=== PATIENT | female | born 1960 | race Caucasian/White ===

== ENCOUNTER 2018-08-03 13:57 | Emergency (ER) | payer BC ==
[~2018-08-03] VITALS: Ht 154.9 cm; Wt 89.8 kg
[2018-08-03] MEDS ORDERED: IV NORMAL SALINE 500 ML BAG IV ONE (14:15)
[2018-08-03 14:32] LABS: BASOPHILS # (AUTO) 0.1 K/uL (0.0-8.0); BASOPHILS % (AUTO) 1.2 % (0.0-2.0); EOSINOPHILS # (AUTO) 0.1 K/uL (0.0-0.7); EOSINOPHILS % (AUTO) 1.9 % (0.0-7.0); HEMATOCRIT 43.8 % (31.2-41.9); HEMOGLOBIN 14.4 g/dL (10.9-14.3); LYMPHOCYTES % (AUTO) 27.5 % (20.5-51.5); MEAN CORPUSCULAR HEMOGLOBIN 27.7 uug (24.7-32.8); MEAN CORPUSCULAR HGB CONC 33 g/dL (32.3-35.6); MEAN CORPUSCULAR VOLUME 84.2 fL (75.5-95.3); MONOCYTES # (AUTO) 0.5 K/uL (2.0-10.0); MONOCYTES % (AUTO) 6.6 % (0.0-11.0); NEUTROPHILS # (AUTO) 4.6 K/uL (1.8-8.9); NEUTROPHILS % (AUTO) 62.8 % (38.5-71.5); PLATELET COUNT (AUTO) 355 K/uL (179-408); WHITE BLOOD COUNT (AUTO) 7.3 K/uL (3.8-11.8)
--- NOTE | 2018-08-03 14:41 | NUR ---
pt back from ct scan, no change in pt condition. pt placed on monitor.
[2018-08-03 14:42] LABS: CREATININE 0.7 mg/dL (0.6-1.3)
--- NOTE | 2018-08-03 14:45 | NUR ---
handss off report given to valery resendezn
[2018-08-03 14:48] LABS: BILIRUBIN,DIRECT 0.1 mg/dL (0.0-0.2); BILIRUBIN,TOTAL 0.5 mg/dL (0.2-1.0)
[2018-08-03 14:49] LABS: TOTAL PROTEIN, SERUM 7.6 g/dL (6.4-8.2)
[2018-08-03] MEDS ORDERED: ASPIRIN 325 MG TABLET PO ONE (15:00)
--- NOTE | 2018-08-03 15:00 | NUR ---
DR YADAV MADE PATIENT AWARE OF TEST RESULTS
[2018-08-03] MEDS ORDERED: ASPIRIN 325 MG TABLET ONE (15:01)
--- NOTE | 2018-08-03 15:07 | NUR ---
Patient discharged to home in stable conditon. Written and verbal after care instructions given. Patient verbalizes understanding of instructions.
[2018-08-03 15:09] VITALS: BP 135/72
== END 2018-08-03 15:23 | disposition home or self-care (01) ==
LOC: ER 13:57
DX: G45.9 Transient cerebral ischemic attack, unspecified (principal); K21.9 Gastro-esophageal reflux disease without esophagitis
CPT/HCPCS: 36415; 70030-TC; 70450; 71045; 85025; 85730; 86850; 86900; 86901; 93005; A4663; J7040